=== PATIENT | male | born 1975 | race Hispanic/Latino ===

== ENCOUNTER 2017-08-19 17:19 | Emergency (ER) | payer BC, MEDICAID, OTHER ==
[2017-08-19 17:36] VITALS: TEMP 97.7; O2SAT 100
[2017-08-19] MEDS ORDERED: Sodium Chloride 0.9% 1,000 ML IV STA (17:51)
[2017-08-19 17:55] VITALS: BMI 28.2
--- NOTE | 2017-08-19 17:55 | ED PDOC ---
Arrival/HPI - General Chief Complaint: Palpitations Time Seen by Provider: 08/19/17 17:22 Historian: Patient - History of Present Illness Narrative History of Present Illness (Text): 08/19/17 17:45 A 42 year old male presents to the emergency department complaining of intermittent palpitations for 6 days. Patient reports drinking significant alcohol the night before symptoms began and he believes that this triggered his palpitations. 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 Patient states he had a full cardiac workup done , including holter monitor, which showed normal results. Patient denies any fever, chills, nausea, vomiting, abdominal pain, chest pain, shortness of breath or any other complaints. PMD: Dr. Oro Time/Duration: Other (6 days) Symptom Course: Unchanged, Intermittent Quality: Other Context: Home Past Medical History - Provider Review Nursing Documentation Reviewed: Yes - Infectious Disease Hx of Infectious Diseases: None - Tetanus Immunization Tetanus Immunization: Unknown - Past Medical History Past Medical History: No Previous - Cardiac Hx Hypertension: Yes - Pulmonary Hx Respiratory Disorders: No - Neurological Hx Neurological Disorder: No - HEENT Hx HEENT Disorder: No - Renal Hx Renal Disorder: No - Endocrine/Metabolic Hx Endocrine Disorders: No - Hematological/Oncological Hx Blood Disorders: No - Integumentary Hx Dermatological Disorder: No - Musculoskeletal/Rheumatological Hx Musculoskeletal Disorders: No - Gastrointestinal Hx Gastrointestinal Disorders: No - Genitourinary/Gynecological Hx Genitourinary Disorders: No - Psychiatric Hx Anxiety: Yes Hx Substance Use: No Other/Comment: H/O Alcohol abuse - Past Surgical History Past Surgical History: No Previous - Anesthesia Hx Anesthesia: No - Suicidal Assessment Feels Threatened In Home Enviroment: No Family/Social History - Physician Review Nursing Documentation Reviewed: Yes Family/Social History: No Known Family HX Smoking Status: Light Smoker < 10 Cigarettes Daily Hx Alcohol Use: Yes Frequency of alcohol use: Socially Hx Substance Use: No Hx Substance Use Treatment: No Allergies/Home Meds Allergies/Adverse Reactions: Allergies No Known Allergies Allergy (Verified 02/28/17 15:35) Home Medications: Home Meds Medication Instructions Recorded Confirmed Losartan [Cozaar] 100 mg PO DAILY 11/05/16 08/19/17 Review of Systems - Physician Review All systems were reviewed & negative as marked: Yes - Review of Systems Constitutional: absent: Fevers, Night Sweats Eyes: absent: Vision Changes ENT: absent: Hearing Changes Respiratory: absent: SOB Cardiovascular: Palpitations. absent: Chest Pain, Edema, Calf Pain, BERNAL, Orthopnea, Syncope Gastrointestinal: absent: Abdominal Pain, Constipation, Diarrhea, Nausea, Vomiting Neurological: absent: Headache, Dizziness Psychiatric: absent: Anxiety Physical Exam Vital Signs Reviewed: Yes Vital Signs Temp Pulse Resp BP Pulse Ox 08/19/17 19:34 61 17 143/78 100 08/19/17 19:32 60 17 145/80 100 08/19/17 17:20 97.7 F 66 16 148/72 100 Temperature: Afebrile Blood Pressure: Normal Pulse: Regular Respiratory Rate: Normal Appearance: Positive for: Well-Appearing, Non-Toxic, Comfortable Pain Distress: None Mental Status: Positive for: Alert and Oriented X 3 - Systems Exam Head: Present: Atraumatic, Normocephalic Pupils: Present: PERRL Extroacular Muscles: Present: EOMI Conjunctiva: Present: Normal Mouth: Present: Moist Mucous Membranes Neck: Present: Normal Range of Motion Respiratory/Chest: Present: Clear to Auscultation, Good Air Exchange. No: Respiratory Distress, Accessory Muscle Use Cardiovascular: Present: Regular Rate and Rhythm, Normal S1, S2. No: Murmurs Abdomen: Present: Normal Bowel Sounds. No: Tenderness, Distention, Peritoneal Signs Back: Present: Normal Inspection Upper Extremity: Present: Normal Inspection. No: Cyanosis, Edema Lower Extremity: Present: Normal Inspection. No: Edema Neurological: Present: GCS=15, CN II-XII Intact, Speech Normal Skin: Present: Warm, Dry, Normal Color. No: Rashes Psychiatric: Present: Alert, Oriented x 3, Normal Insight, Normal Concentration Medical Decision Making ED Course and Treatment: 08/19/17 17:45 Impression: A 42 year old male with palpitations. Plan: -- Chest xray -- Labs -- IV fluids -- Reassess and disposition Progress Notes: EKG shows NSR at 76 BPM with occasional PVCs, no ST changes. Interpreted by me. 08/19/17 19:22 Cxray negative. Electrolyte WNL. Trop negative. TSH and free t4 WNL. On reeevaluation after 1L IVF, patient feels better and has no symptoms. Patient has PMD and cardiology follow-up and reports that he will follow-up. - Lab Interpretations Lab Results: 08/19/17 17:50 08/19/17 17:50 Lab Results 08/19/17 17:50: Free T4 1.15, TSH 3rd Generation 2.08 08/19/17 17:50: Sodium 140, Potassium 3.7, Chloride 106, Carbon Dioxide 21, Anion Gap 17, BUN 23 H, Creatinine 0.8, Est GFR ( Amer) > 60, Est GFR ( Non-Af Amer) > 60, Random Glucose 114 H, Calcium 9.2, Phosphorus 3.7, Magnesium 2.2, Total Bilirubin 0.5, AST 30, ALT 40, Alkaline Phosphatase 53, Troponin I < 0.01, Total Protein 7.3, Albumin 4.3, Globulin 3.0, Albumin/Globulin Ratio 1.4 08/19/17 17:50: WBC 9.7, RBC 4.19, Hgb 13.4 L, Hct 38.8 L, MCV 92.6, MCH 32.0, MCHC 34.5, RDW 12.6, Plt Count 252, MPV 10.9, Gran % 53.2, Lymph % (Auto) 35.0, Tama % (Auto) 9.3 H, Eos % (Auto) 2.0, Baso % (Auto) 0.5, Gran # 5.13, Lymph # 3.4, Tama # 0.9 H, Eos # 0.2, Baso # 0.05 I have reviewed the lab results: Yes - RAD Interpretation Radiology Orders: 08/19/17 17:50 CHEST PORTABLE [RAD] Stat - Medication Orders Current Medication Orders: Discontinued Medications Sodium Chloride (Sodium Chloride 0.9%) 1,000 mls @ 999 mls/hr IV .Q1H1M STA Stop: 08/19/17 18:51 Last Admin: 08/19/17 17:59 Dose: 999 mls/hr eMAR Start Stop Document 08/19/17 17:59 SF (Rec: 08/19/17 17:59 SF [id number]) Intravenous Solution Start Date 08/19/17 Start Time 17:59 End Date 08/19/17 End time 19:00 Total Infusion Time 61 - Scribe Statement The provider has reviewed the documentation as recorded by the Gaurang Banerjee Provider Scribe Attestation: All medical record entries made by the Scribe were at my direction and personally dictated by me. I have reviewed the chart and agree that the record accurately reflects my personal performance of the history, physical exam, medical decision making, and the department course for this patient. I have also personally directed, reviewed, and agree with the discharge instructions and disposition. Disposition/Present on Arrival - Present on Arrival Any Indicators Present on Arrival: No History of DVT/PE: No History of Uncontrolled Diabetes: No Urinary Catheter: No History of Decub. Ulcer: No History Surgical Site Infection Following: None - Disposition Have Diagnosis and Disposition been Completed?: Yes Diagnosis: Palpitations, PVC (premature ventricular contraction) Disposition: HOME/ ROUTINE Disposition Time: 19:23 Patient Plan: Discharge Condition: GOOD Discharge Instructions (ExitCare): Palpitations (ED) Additional Instructions: Follow-up with PMD within 2 days. Return to ED if condition worsens. Follow- up with cardiology within 2 days. Referrals: Sobia Oro MD [Primary Care Provider] - Follow up with primary Forms: [employer] (Hebrew)
[2017-08-19 18:21] LABS: BASO # 0.05 K/mm3 (0.0-2.0); BASO % 0.5 % (0.0-3.0); EOS # 0.2 (0.0-0.7); GRAN # 5.13 (1.4-6.5); GRAN % 53.2 % (50.0-68.0); HEMATOCRIT 38.8 % (42.0-52.0); LYMPH # 3.4 (1.2-3.4); MEAN CELL VOLUME 92.6 fl (80.0-105.0); MEAN CORPUSCULAR HGB CONC 34.5 g/dl (31.0-37.0); MEAN PLATELET VOLUME 10.9 fl (7.0-11.0); MONO # 0.9 (0.1-0.6); MONO % 9.3 % (1.0-6.0); RED CELL DISTRIBUTION WIDTH 12.6 % (11.5-14.5); WHITE BLOOD COUNT 9.7 10^3/ul (4.5-11.0)
[2017-08-19 18:36] LABS: ALB/GLOB RATIO 1.4 (1.1-1.8); ALKALINE PHOSPHATASE 53 U/L (38-126); ALT/SGPT 40 U/L (7-56); AST/SGOT 30 U/L (17-59); BILIRUBIN,TOTAL 0.5 mg/dL (0.2-1.3); BLOOD UREA NITROGEN 23 mg/dL (7-21); CALCIUM 9.2 mg/dL (8.4-10.5); CARBON DIOXIDE 21 mmol/L (21-33); CHLORIDE 106 mmol/L (98-107); GFR AFRICAN-AMERICAN > 60; GLUCOSE,RANDOM 114 mg/dL (70-110); MAGNESIUM 2.2 mg/dL (1.7-2.2); PHOSPHOROUS 3.7 mg/dL (2.5-4.5); POTASSIUM 3.7 mmol/L (3.6-5.0); SODIUM 140 mmol/L (132-148); TOTAL PROTEIN 7.3 g/dL (5.8-8.3)
[2017-08-19 18:45] LABS: TROPONIN I < 0.01 ng/mL
[2017-08-19 18:51] LABS: FREE T4 1.15 ng/dL (0.78-2.19)
[2017-08-19 19:05] LABS: THYROID STIMULATING HORMONE 2.08 mIU/mL (0.46-4.68)
[2017-08-19 19:33] VITALS: RESP 17
[2017-08-19 19:35] VITALS: BP 143/78; PULSE 61
--- NOTE | 2017-08-20 08:17 | RAD ---
HISTORY: Palpitations COMPARISON: No prior. FINDINGS: LUNGS: No active pulmonary disease. PLEURA: No significant pleural effusion identified, no pneumothorax apparent. CARDIOVASCULAR: No radiographic findings to suggest acute or significant cardiovascular disease. OSSEOUS STRUCTURES: No significant abnormalities. VISUALIZED UPPER ABDOMEN: Normal. OTHER FINDINGS: None. IMPRESSION: No active disease.
--- NOTE | 2017-08-20 09:20 | CARD ---
APPROVED REPORT EKG Measurement Heart [id number] <Conclusion> Sinus rhythm with one premature ventricular complex
== END 2017-08-19 19:36 | disposition home or self-care (01) ==
LOC: ED 17:19
DX: I49.3 Ventricular premature depolarization (principal); R00.2 Palpitations; I10 Essential (primary) hypertension; F17.210 Nicotine dependence, cigarettes, uncomplicated
CPT/HCPCS: 71010; 80053; 83735; 84100; 84439; 84443; 84484; 85025; 93005; 96360; 99285; J7040

== ENCOUNTER 2018-01-03 19:32 | Emergency (ER) | payer BC ==
[2018-01-03 20:29] VITALS: BP 144/81
--- NOTE | 2018-01-03 22:11 | ED PDOC ---
Arrival/HPI - General Chief Complaint: Flu-like Symptoms Time Seen by Provider: 01/03/18 21:12 Historian: Patient - History of Present Illness Narrative History of Present Illness (Text): 01/03/18 22:11 42 year old male, with no significant past medical history, presents to the emergency department complaining of low grade fever, cough, and flu like symptoms for the past couple days. Patient denies any neck pain, back pain, chest pain, shortness of breath, headache, dizziness, or any other complaints. Time/Duration: Other (couple days) Symptom Onset: Gradual Symptom Course: Unchanged Activities at Onset: Light Context: Home Past Medical History - Provider Review Nursing Documentation Reviewed: Yes - Infectious Disease Hx of Infectious Diseases: None - Tetanus Immunization Tetanus Immunization: Unknown - Past Medical History Past Medical History: No Previous - Cardiac Hx Hypertension: Yes - Pulmonary Hx Respiratory Disorders: No - Neurological Hx Neurological Disorder: No - HEENT Hx HEENT Disorder: No - Renal Hx Renal Disorder: No - Endocrine/Metabolic Hx Endocrine Disorders: No - Hematological/Oncological Hx Blood Disorders: No - Integumentary Hx Dermatological Disorder: No - Musculoskeletal/Rheumatological Hx Musculoskeletal Disorders: No - Gastrointestinal Hx Gastrointestinal Disorders: No - Genitourinary/Gynecological Hx Genitourinary Disorders: No - Psychiatric Hx Substance Use: No Other/Comment: etoh withdrawal - Past Surgical History Past Surgical History: No Previous - Anesthesia Hx Anesthesia: No - Suicidal Assessment Feels Threatened In Home Enviroment: No Family/Social History - Physician Review Nursing Documentation Reviewed: Yes Family/Social History: No Known Family HX Smoking Status: Light Smoker < 10 Cigarettes Daily Hx Alcohol Use: Yes Frequency of alcohol use: Socially Hx Substance Use: No Hx Substance Use Treatment: No Allergies/Home Meds Allergies/Adverse Reactions: Allergies No Known Allergies Allergy (Verified 02/28/17 15:35) Home Medications: Home Meds Medication Instructions Recorded Confirmed Losartan [Cozaar] 100 mg PO DAILY 11/05/16 01/03/18 Review of Systems - Physician Review All systems were reviewed & negative as marked: Yes - Review of Systems Constitutional: Fevers Respiratory: Cough. absent: SOB Cardiovascular: absent: Chest Pain Musculoskeletal: absent: Back Pain, Neck Pain Neurological: absent: Headache, Dizziness Physical Exam Vital Signs Reviewed: Yes Vital Signs Temp Pulse Resp BP Pulse Ox 01/03/18 22:18 101.3 F H 01/03/18 22:15 101.3 F H 66 18 98 01/03/18 21:18 102 F H 01/03/18 21:10 102 F H 01/03/18 19:32 100.1 F H 75 19 144/81 97 Temperature: Febrile Blood Pressure: Normal Pulse: Regular Respiratory Rate: Normal Appearance: Positive for: Well-Appearing, Non-Toxic, Comfortable Pain Distress: None Mental Status: Positive for: Alert and Oriented X 3 - Systems Exam Head: Present: Atraumatic, Normocephalic Pupils: Present: PERRL Extroacular Muscles: Present: EOMI Conjunctiva: Present: Normal Mouth: Present: Moist Mucous Membranes Nose (Internal): Present: Rhinorrhea Neck: Present: Normal Range of Motion. No: Meningeal Signs Respiratory/Chest: Present: Clear to Auscultation, Good Air Exchange. No: Respiratory Distress, Accessory Muscle Use Cardiovascular: Present: Regular Rate and Rhythm, Normal S1, S2. No: Murmurs Abdomen: Present: Normal Bowel Sounds. No: Tenderness, Distention, Peritoneal Signs Back: Present: Normal Inspection Upper Extremity: Present: Normal Inspection, Normal ROM. No: Cyanosis, Edema Lower Extremity: Present: Normal Inspection, Normal ROM. No: Edema Neurological: Present: GCS=15, CN II-XII Intact, Speech Normal, Motor Func Grossly Intact, Normal Sensory Function. No: Other (No focal or sensory deficits. ) Skin: Present: Warm, Dry, Normal Color. No: Rashes Psychiatric: Present: Alert, Oriented x 3, Normal Insight, Normal Concentration Medical Decision Making ED Course and Treatment: 01/03/18 22:11 Impression: 42 year old male presents complaining of low grade fever, cough, and flu-like symptoms that began a few days ago. Plan: -- Motrin Tab -- Tamiflu Cap -- Tylenol 325mg Tab -- Influenza A B -- Reassess and disposition Progress Notes: On re-evaluation, I have discussed the results and plan with the patient, who expresses understanding. Patient in agreement with plan to be discharged home. Patient is stable for discharge. Patient was instructed to follow up with physician or return if symptoms worsen or new concerning symptoms arise. - Lab Interpretations Lab Results: Lab Results 01/03/18 21:20: Influenza Typ A,B (EIA) Pos for influenza b H - Medication Orders Current Medication Orders: Discontinued Medications Acetaminophen (Tylenol 325mg Tab) 975 mg PO STAT STA Stop: 01/03/18 21:12 Last Admin: 01/03/18 21:18 Dose: 975 mg MAR Pain/Vitals Document 01/03/18 21:18 GMD (Rec: 01/03/18 21:18 GMD [id number]) Vitals Temperature (97.6 F-99.6 F) 102 F Temperature Source Oral Ibuprofen (Motrin Tab) 600 mg PO STAT STA Stop: 01/03/18 22:16 Last Admin: 01/03/18 22:18 Dose: 600 mg MAR Pain/Vitals Document 01/03/18 22:18 GMD (Rec: 01/03/18 22:18 GMD [id number]) Vitals Temperature (97.6 F-99.6 F) 101.3 F Temperature Source Oral Oseltamivir Phosphate (Tamiflu Cap) 75 mg PO ONCE ONE PRN Reason: Protocol Stop: 01/03/18 21:53 Last Admin: 01/03/18 22:03 Dose: 75 mg - Scribe Statement The provider has reviewed the documentation as recorded by the Gaurang Enciso Provider Scribe Attestation: All medical record entries made by the Gaurang were at my direction and personally dictated by me. I have reviewed the chart and agree that the record accurately reflects my personal performance of the history, physical exam, medical decision making, and the department course for this patient. I have also personally directed, reviewed, and agree with the discharge instructions and disposition. Disposition/Present on Arrival - Present on Arrival Any Indicators Present on Arrival: No History of DVT/PE: No History of Uncontrolled Diabetes: No Urinary Catheter: No History of Decub. Ulcer: No History Surgical Site Infection Following: None - Disposition Have Diagnosis and Disposition been Completed?: Yes Diagnosis: Influenza B Disposition: HOME/ ROUTINE Disposition Time: 22:12 Patient Plan: Discharge Condition: GOOD Discharge Instructions (ExitCare): Influenza (ED) Additional Instructions: Rest/drink plenty of liquids/Tylenol for fever as directed/take meds as prescribed/follow up with your doctor this week Prescriptions: Oseltamivir [Tamiflu] 75 mg PO BID #10 cap Referrals: Sobia Oro MD [Primary Care Provider] - Follow up with primary Forms: [employer] (Pashto), WORK NOTE
[2018-01-03 22:15] VITALS: PULSE 66; RESP 18; TEMP 101.3; O2SAT 98
== END 2018-01-03 22:32 | disposition home or self-care (01) ==
LOC: ED 19:32
DX: J10.1 Influenza due to other identified influenza virus with other respiratory manifestations (principal); F17.210 Nicotine dependence, cigarettes, uncomplicated

== ENCOUNTER 2018-04-15 06:40 | Day surgery (SDC) | payer BC ==
[2018-04-08 12:29] VITALS: BMI 28.2
[2018-04-15 07:09] VITALS: O2SAT 99
[2018-04-15] MEDS ORDERED: Propofol 10 mg/ml Inj (20 ML) ONE ×3 (08:07→08:30)
[2018-04-15] MEDS ORDERED: Lidocaine 2% Inj (20ml) ONE (08:07)
[2018-04-15] MEDS ORDERED: Sodium Chloride 0.9% 1,000 ML IV SCH (09:00)
[2018-04-15 09:46] VITALS: RESP 16
[2018-04-15 11:10] VITALS: BP 125/66; PULSE 47; TEMP 97.6
--- NOTE | 2018-04-15 14:54 | CARD ---
APPROVED REPORT EKG Measurement Heart [id number] <Conclusion> Marked sinus bradycardia ST elevation, probably due to early repolarization Abnormal ECG
== END 2018-04-15 10:38 | disposition home or self-care (01) ==
LOC: ENDO 06:40
PROVIDERS: ATTEND Internal Medicine Gastroenterology
DX: K63.5 Polyp of colon (principal); K64.1 Second degree hemorrhoids; K59.00 Constipation, unspecified
CPT/HCPCS: 45380; 88305; 93005; J2704; J7030; J7040